=== PATIENT | female | born 1985 | race Caucasian/White ===

== ENCOUNTER 2018-09-28 20:29 | Emergency (ER) | payer BC ==
[2018-09-28] MEDS ORDERED: NITROGLYCERIN 0.4 MG 25 EA TAB SL ONE (20:34)
[2018-09-28] MEDS ORDERED: METOPROLOL TARTRATE INJ 5 MG/5 ML VIAL IV ONE ×3 (20:52→22:36)
--- NOTE | 2018-09-28 21:02 | ED.PDOC ---
History of Present Illness - General Chief Complaint: Cardiovascular Problem Stated Complaint: heart palpitations and chest pain Time Seen by Provider: 09/28/18 20:51 Source: patient Exam Limitations: no limitations - History of Present Illness Initial Comments: Pt has had tachycardia / A. Fib for two weeks. Has been placed on methemazole/ propranolol for her Grave's disease by her doctor, and is waiting to see Dr Lopez . She is taking aspirin, but no blood thinners. Tonight she has had chest pains. Timing/Duration: getting worse Severity: severe Location: substernal Activities at Onset: none Improving Factors: nothing Worsening Factors: nothing Aspirin Treatment Today: 325 mg x 1 Associated Symptoms: shortness of breath, weakness Allergies/Adverse Reactions: Allergies Penicillins Allergy (Verified 09/28/18 20:34) Home Medications: Ambulatory Orders Aspirin [(None)] 325 mg PO QD 09/28/18 Propranolol HCl 40 mg PO DAILY 09/28/18 methIMAzole [Tapazole] 10 mg PO DAILY 09/28/18 Review of Systems - Review of Systems Constitutional: States: chills, weakness. Denies: diaphoresis EENTM: States: no symptoms reported Respiratory: States: short of breath. Denies: cough, orthopnea Cardiology: States: chest pain. Denies: edema, syncope Gastrointestinal/Abdominal: States: no symptoms reported. Denies: nausea, vomiting Genitourinary: States: no symptoms reported Musculoskeletal: States: no symptoms reported Skin: States: no symptoms reported Neurological: States: no symptoms reported Endocrine: States: intolerance to cold Hematologic/Lymphatic: States: no symptoms reported Past Medical History (General) - Patient Medical History Hx Cardiac Disorders: Yes - A-Fib Surgical History: cholecystectomy, other - Vaccination History Hx Tetanus, Diphtheria Vaccination: No Hx Influenza Vaccination: No Hx Pneumococcal Vaccination: No - Social History Hx Tobacco Use: Yes Hx Alcohol Use: Yes - social Family Medical History - Family History Mother Family History: Unknown Physical Exam - Physical Exam General Appearance: Agitated, Alert, Anxious Eyes, Ears, Nose, Throat Exam: PERRL/EOMI Neck: non-tender, full range of motion, normal inspection Respiratory: lungs clear, normal breath sounds, no respiratory distress, other - tender to palpation Cardiovascular/Chest: normal peripheral pulses, tachycardia, irregularly irregular Gastrointestinal/Abdominal: normal bowel sounds, non tender, soft Extremity: normal range of motion, non-tender, normal inspection, no pedal edema Neurologic: [employer] II-XII nml as tested, no motor/sensory deficits, oriented x 3 Skin Exam: normal color, warm/dry Lymphatic: no adenopathy Progress - EKG/XRAY/CT EKG: Atrial, Fibrillation Comments: with RVR; Rate 130, QRS 100, QTc 609 Departure - Departure Clinical Impression: Atrial fibrillation with RVR, Hyperthyroidism Chest pain Qualifiers: Chest pain type: unspecified Qualified Code(s): R07.9 - Chest pain, unspecified Disposition: Transfer to Hospital Departure Forms: ED Discharge - Pt. Copy, Patient Portal Self Enrollment Instructions: DI for Chest Pain Home Medications: Ambulatory Orders Aspirin [(None)] 325 mg PO QD 09/28/18 Propranolol HCl 40 mg PO DAILY 09/28/18 methIMAzole [Tapazole] 10 mg PO DAILY 09/28/18 Critical Care Note - Critical Care Note Total Time (mins): 50 Comments: Critical care note: Presenting complaint- chest pain, SOB; Findings - A.Fib with RVR, Hyperthyroid; Actions - IV lopressor 5 mg X 3, Lovenox 125 mg SQ, transfer to higher level of care; Systems at risk - Cardiovascular Transfer to Outside Facility - Transfer Information Accepting Facility: [facility] Reason for Transfer: specialized care not available
--- NOTE | 2018-09-28 21:11 | RAD ---
EXAM DESCRIPTION: Chest,1 View CLINICAL HISTORY: chest pain COMPARISON: None. FINDINGS: There is mild bilateral pulmonary edema. The heart is mildly enlarged. There is no focal parenchymal or pleural disease. Visualized osseous structures are within normal limits. IMPRESSION: Mild cardiomegaly and mild pulmonary edema. Electronically signed by: Gerald Abreu 09/28/2018 9:08 PM CDT
--- NOTE | 2018-09-28 22:21 | CT ---
PROCEDURE: CTA Chest CLINICAL HISTORY: 33 years Female chest pain, elevated d-dimer, a. fib COMPARISON: None. TECHNIQUE: Contiguous axial images obtained through the chest during the infusion of IV contrast. Reformatted images obtained. MIP reformatted images obtained. This exam was performed according to our department optimization program which includes automated exposure control, adjustment of the mA and/or kv according to patient size and/or use of iterative reconstruction technique. FINDINGS: There is splenomegaly. Changes from previous cholecystectomy. Minimal pericardial effusion. Mild cardiomegaly. Small amount of fluid in the mediastinal pericardial recesses. No aneurysmal dilatation the aorta. Contrast bolus timing is suboptimal for pulmonary embolism evaluation. There is also respiratory motion artifact on the images which limits evaluation. No large central pulmonary emboli are identified. No consolidating infiltrates or pleural effusions. Mild interstitial changes in the lungs which could be from mild interstitial edema. No pneumothorax. Degenerative changes in the spine. IMPRESSION: Cardiomegaly with mild interstitial edema which could be from CHF or fluid overload. Minimal pericardial effusion. The study is suboptimal for pulmonary embolism evaluation. No large central pulmonary emboli are identified. Splenomegaly. Electronically signed by: Gagan Uribe MD 09/28/2018 10:17 PM CDT
[2018-09-28] MEDS ORDERED: ENOXAPARIN SODIUM 100 MG/ML SYG SUBCU ONE (22:41)
[2018-09-28] MEDS ORDERED: ENOXAPARIN SODIUM 30 MG/0.3 ML SYG SUBCU ONE (22:41)
[2018-09-28 23:23] VITALS: O2SAT 96
[2018-09-28 23:36] VITALS: BP 108/79; TEMP 98.3
[2018-09-28] MEDS ORDERED: PROPRANOLOL HCL 20 MG TAB PO SCH (23:45)
== END 2018-09-29 00:03 | disposition short-term general hospital (02) ==
LOC: ER 20:29
DX: I48.91 Unspecified atrial fibrillation (principal); R00.0 Tachycardia, unspecified; R07.2 Precordial pain; E05.00 Thyrotoxicosis with diffuse goiter without thyrotoxic crisis or storm; Z87.891 Personal history of nicotine dependence; Z79.82 Long term (current) use of aspirin; Z79.899 Other long term (current) drug therapy; Z88.0 Allergy status to penicillin
CPT/HCPCS: 36415; 71045; 71275; 80048; 80076; 82550; 82553; 83880; 84443; 84484; 85025; 85379; 85610; 85730; 93005; J1650